=== PATIENT | male | born 1995 | race African-American/Black ===

== ENCOUNTER 2017-06-02 20:52 | Emergency (ER) | payer OTHER ==
[~2017-06-02] VITALS: Ht 182.9 cm; Wt 69.2 kg
[2017-06-02 21:13] LABS: BASOPHIL (%) 0.3 % (0-1); EOSINOPHIL (%) 1.5 % (0-5); EOSINOPHIL COUNT 0.2 K/uL (0-0.3); HEMATOCRIT 41.6 % (38.0-50.0); HEMOGLOBIN 14.1 G/DL (12.5-16.6); IMMATURE GRANULOCYTE (%) 0.2 % (0.0-0.7); LYMPHOCYTE (%) 28.2 % (15-42); LYMPHOCYTE COUNT 3.4 K/uL (1.0-2.8); MCH 27.8 PG (29.0-34.0); MCHC 33.9 G/DL (30.0-36.0); MCV 82.1 FL (86-99); MONOCYTE (%) 7.2 % (3-12); MONOCYTE COUNT 0.9 K/uL (0-0.8); NEUTROPHIL (%) 62.6 % (45-76); NEUTROPHIL COUNT 7.6 K/uL (1.8-6.4); PLATELET COUNT 241 K/uL (156-360); RBC DIS.WIDTH-CV 12.9 % (11.8-14.6); RBC DIS.WIDTH-SD 38.2 % (39-53); RED BLOOD COUNT 5.07 M/uL (4.00-5.50); WHITE BLOOD COUNT 12.1 K/uL (4.1-10.2)
[2017-06-02 21:21] LABS: ALBUMIN 4.4 g/dL (3.2-4.8)
[2017-06-02 21:22] LABS: CHLORIDE 103 mEq/L (99-109); POTASSIUM 3.4 mEq/L (3.7-5.4); SODIUM 140 mEq/L (136-147)
[2017-06-02 21:24] LABS: GLUCOSE 85 mg/dL (70-99); TOTAL PROTEIN 7.6 g/dL (6.4-8.3)
[2017-06-02 21:26] LABS: TOTAL BILIRUBIN 0.8 mg/dL (0.0-1.0)
[2017-06-02 21:27] LABS: ALKALINE PHOSPHATASE 75 IU/L (3-129)
[2017-06-02 21:28] LABS: CREATININE 0.8 mg/dL (0.6-1.3)
[2017-06-02 21:29] LABS: AST (GOT) 918 IU/L (2-34); UREA NITROGEN (BUN) 10 mg/dL (9-23)
[2017-06-02 21:30] LABS: GFR ESTIMATE (CALCULATED) > 59 mL/min/ (58.99-99999)
[2017-06-02 21:31] LABS: ALT (GPT) 323 IU/L (3-49)
[2017-06-02 22:28] LABS: CREATINE KINASE 105520 IU/L (1-294)
[2017-06-02 22:35] LABS: APPEARANCE CLEAR ((CLEAR)); BILIRUBIN NEGATIVE; BLOOD LARGE; COLOR AMBER ((YELLOW)); GLUCOSE (STRIP) NEGATIVE; KETONES NEGATIVE; LEUKOCYTES NEGATIVE; NITRITE NEGATIVE; PROTEIN (STRIP) 100; SPECIFIC GRAVITY 1.034 (1.000-1.030)
[2017-06-02 23:01] LABS: BACTERIA NONE SEEN /HPF; EPITHELIAL CELLS RARE /HPF; MUCUS TRACE /LPF; RED BLOOD CELLS 0-5 /HPF (0-5); UCUL ADDED? NO; WHITE BLOOD CELLS 0-5 /HPF (0-5)
[2017-06-03 00:51] VITALS: BP 130/97
== END 2017-06-03 00:52 | disposition short-term general hospital (02) ==
LOC: EME 20:52 → EDBD 20:52 → EME 20:52
PROVIDERS: Emergency Medicine
DX: M62.82 Rhabdomyolysis (principal); Z87.891 Personal history of nicotine dependence
CPT/HCPCS: 80053; 81003; 82550; 85025; 99281; 99285; J7120